=== PATIENT | female | born 1935 | race Caucasian/White ===

== ENCOUNTER 2020-08-19 18:14 | Inpatient (IN) | payer MEDICARE, OTHER ==
[~2020-08-19] VITALS: Ht 160 cm; Wt 61.3 kg
[2020-08-19] MEDS ORDERED: SYNTHROID0.05 MG/TA PO (18:30)
[2020-08-19 20:15] VITALS: BP 140/69; PULSE 84; TEMP 98.3
[2020-08-19 21:14] LABS: BASO % 0.3 % (0.0-2.0); EOS % 0.3 % (0-4.0); GRAN # 12.9 (1.4-6.5); GRAN % 84.5 % (42.2-75.2); HEMATOCRIT 41.4 % (37.0-47.0); HEMOGLOBIN 13.4 g/dl (12.5-16.0); LYMPH # 1.3 (1.2-3.4); LYMPH % 8.3 % (20.0-51.0); MEAN CELL VOLUME 88 fl (80.0-100.0); MEAN CORPUSCULAR HEMOGLOBIN 29 pg (27.0-31.0); MEAN CORPUSCULAR HGB CONC 32 g/dl (33.0-37.0); MEAN PLATELET VOLUME 10.6 fl (7.4-10.4); MONO # 0.9 (0.1-0.6); MONO % 6.1 % (1.7-9.3); PLATELET COUNT 200 K/mm3 (130-400); RED BLOOD COUNT 4.69 M/mm3 (4.10-5.30); REDCELL DISTRIBUTION WIDTH-CV 13.6 % (11.5-14.5)
--- NOTE | 2020-08-19 21:14 | NUR ---
Pt. arrived to the floor via stretcher Pt. transfered to the bed with 3 assist and slide board. Pt. is A&OX3, assessment complete. INT to rt. ac patent. 16 fr. mcqueen placed at this time. Pt. tolerated well. Pt. rates pain at a 3 on pain scale at this time. Pt. denies further needs,
[2020-08-19 21:15] LABS: PROTHROMBIN TIME 11.7 SECONDS (9.7-12.8)
[2020-08-19 21:25] LABS: ALBUMIN 4.5 gm/dL (3.5-5.0); BILIRUBIN,TOTAL 0.6 mg/dL (0.0-1.0); CALCIUM 9.6 mg/dL (8.4-10.2); CREATININE, serum 0.69 (0.52-1.25); POTASSIUM 4.4 mmol/L (3.4-5.0); TOTAL PROTEIN 7.9 gm/dL (6.4-8.2)
[2020-08-19 21:32] LABS: PRE ALBUMIN 23.5 mg/dL (17.6-36.0)
[2020-08-19 23:56] LABS: COLLECTION METHOD CATHETER
[2020-08-20] VITALS (9 sets, daily range): BP systolic 117–128; BP diastolic 48–68; PULSE 72–93; TEMP 97.4–98.6
[2020-08-20 00:06] LABS: AMORPHOUS CRYSTAL Present /uL; MUCOUS Present /lpf; PH 5 (5-8); SQUAMOUS EPITHELIAL None Seen /hpf; URINE APPEARANCE Turbid; URINE BACTERIA Rare /hpf; URINE BILIRUBIN Negative (NEGATIVE); URINE BLOOD 1+ (NEGATIVE); URINE COLOR Amber; URINE GLUCOSE Negative (NEGATIVE); URINE KETONE Trace (NEGATIVE); URINE LEUKOCYTE ESTERASE Negative (NEGATIVE); URINE NITRATE Negative (NEGATIVE); URINE PROTEIN(semi-quant) Negative (NEGATIVE); URINE RBC 0-2 /hpf; URINE UROBILINOGEN Negative (NEGATIVE)
[2020-08-20 04:47] LABS: BASO % 0.1 % (0.0-2.0); EOS % 0.1 % (0-4.0); GRAN # 7.8 (1.4-6.5); GRAN % 77.8 % (42.2-75.2); HEMATOCRIT 35.5 % (37.0-47.0); HEMOGLOBIN 11.7 g/dl (12.5-16.0); LYMPH # 1.2 (1.2-3.4); LYMPH % 12.1 % (20.0-51.0); MEAN CELL VOLUME 87 fl (80.0-100.0); MEAN CORPUSCULAR HEMOGLOBIN 29 pg (27.0-31.0); MEAN CORPUSCULAR HGB CONC 33 g/dl (33.0-37.0); MEAN PLATELET VOLUME 9.5 fl (7.4-10.4); MONO % 9.6 % (1.7-9.3); PLATELET COUNT 152 K/mm3 (130-400); RED BLOOD COUNT 4.07 M/mm3 (4.10-5.30); REDCELL DISTRIBUTION WIDTH-CV 13.7 % (11.5-14.5)
[2020-08-20 04:59] LABS: CREATININE, serum 0.6 (0.52-1.25); MAGNESIUM 2.1 mg/dL (1.6-2.3); POTASSIUM 4.3 mmol/L (3.4-5.0)
--- NOTE | 2020-08-20 08:00 | NUR ---
PATIENT IS A&O. VSS. DENIES PAIN AT REST. NPO FOR SURGERY TODAY. HEAD TO TOE ASSESSMENT COMPLETE. MARCIAL TO DD. IV FLUIDS INFUSING VIA PUMP INTO RIGHT AC IV. NO OTHER NEEDS. CALL LIGHT IN REACH.
--- NOTE | 2020-08-20 09:50 | NUR ---
ALEXEY met with the patient and her son, Jeovanny (ph#[phone]), to discuss discharge plan. The patient lives alone in-between [facility]. Jeovanny lives down the road from her. She reports independence with ADLs and does not have any DME. The patient's PCP is Dr. Jabier Austin and [facility] She reports no difficulties obtaining her meds. The patient does not have a DPOA-HC in EMR, but she states that she does have one completed and that Jeovanny is her DPOA-HC. She states that her and that she has two living children: Jeovanny and her daughter, Carolann. The patient had a right hip fracture. ALEXEY discussed post-acute rehab. Carolann reports that she does not want to go to an inpatient rehab/SNF. She states that she has done outpatient therapy at [facility] in the past and would prefer to return home and do outpatient therapy upon discharge. She states that her daughter will be staying with her for awhile, when she returns home. Jeovanny was supportive of this. SW encouraged the patient to work with therapy while here. The patient is to have surgery today. SW to continue to follow.
--- NOTE | 2020-08-20 11:13 | NUR ---
First visit from the photographic machine operator. No needs right now.
--- NOTE | 2020-08-20 11:15 | NUR ---
PATIENT GOING DOWN TO SURGERY VIA BED. CONSENT ON CHART.
--- NOTE | 2020-08-20 15:40 | NUR ---
PATIENT BACK IN ROOM FROM RIGHT HIP GAMMA NAILING. ORIENTED BUT SLIGHTLY DROWSY. VSS. DENIES PAIN. PATIENT ABLE TO SL MOVE BLE. RIGHT HIP DRESSING IS CD&I WITH FOAM DRESSING AND ICE PACK INPLACE. TEDS & SCD'D TO BLE. POSITIVE PEDAL PULSES TO BLE. HEAD TO TOE ASSESSMENT WNL. NO C/O N/V. IV FLUIDS INFUSING VIA PUMP INTO NEW LEFT WRIST IV SITE. SON AT BEDSIDE. NO OTHER NEEDS. CALL LIGHT IN REACH.
--- NOTE | 2020-08-20 19:00 | NUR ---
Report received, assumed care for move coordinator. Assessment complete. A&Ox3. Denies pain/nausea/shortness of breath. Currently on post op vitals-stable. Godfrey cath with clear yellow urine. Has not tolerated much PO clear liquids-only sips of water. States right lower extremity is still numb and tingly. Dressing to right hip CDI-foam tape/bulky white. IV fluids continue to infuse to left wrist IV without difficulty. Plan of care discussed for this shift to inlcude pain control/calling for needs. Verbalizes understanding/denies questions/concerns. Call light in reach. Will monitor.
[2020-08-21] VITALS (7 sets, daily range): BP systolic 102–136; BP diastolic 45–59; PULSE 84–93; TEMP 97.4–98.7
--- NOTE | 2020-08-21 00:02 | NUR ---
Sitting up in bed watching TV. Denies pain/nausea/shortess of breath. States right lower extremity is still numb but only to knee. Dressing reamains CDI. Denies needs. Call light in reach. Will monitor.
--- NOTE | 2020-08-21 05:42 | NUR ---
Rested well this shift. Denies pain/nausea/shortness of breath. VS remained stable. Has more feeling in right lower extremity. Did attempt to sit on side of bed but stated she just couldnt do it. Dressing to right hip remained CDI. SCDs/TEDs bilat. Enrique with clear yellow urine. IV fluids continued due to minimal PO intake. Call light in reach. Will monitor.
[2020-08-21 07:27] LABS: BASO % 0.2 % (0.0-2.0); GRAN # 10.6 (1.4-6.5); GRAN % 82.1 % (42.2-75.2); HEMOGLOBIN 10.1 g/dl (12.5-16.0); LYMPH # 1.1 (1.2-3.4); LYMPH % 8.4 % (20.0-51.0); MEAN CELL VOLUME 89 fl (80.0-100.0); MEAN CORPUSCULAR HEMOGLOBIN 29 pg (27.0-31.0); MEAN CORPUSCULAR HGB CONC 33 g/dl (33.0-37.0); MEAN PLATELET VOLUME 9.5 fl (7.4-10.4); MONO # 1.1 (0.1-0.6); MONO % 8.7 % (1.7-9.3); PLATELET COUNT 146 K/mm3 (130-400); REDCELL DISTRIBUTION WIDTH-CV 13.7 % (11.5-14.5)
[2020-08-21 07:30] LABS: HEMATOCRIT 31.1 % (37.0-47.0)
[2020-08-21 07:50] LABS: CALCIUM 8.9 mg/dL (8.4-10.2); CREATININE, serum 0.53 (0.52-1.25); POTASSIUM 4.4 mmol/L (3.4-5.0)
--- NOTE | 2020-08-21 09:47 | NUR ---
Patient resting in bed at this time. Patient is alert and oriented, answers questions appropriately. Godfrey remains in place per order draining clear yellow urine. Patient denies pain or nausea, denies further needs at this time, call light within reach.
--- NOTE | 2020-08-21 15:15 | NUR ---
Grain Miller Helper reviewed PT/OT notes for patient which both recommend home. SW followed up with patient who confirmed that she plans to return home at discharge with the support of her daughter, Carolann. SW contacted Carolann to review discharge plan. Carolann plans to stay with patient upon discharge and has no concerns about patient returning home at this time.
--- NOTE | 2020-08-21 17:51 | NUR ---
Patient resting in bedside recliner at this time. Patient remains alert and oriented and continues to deny pain. Call light within reach.
--- NOTE | 2020-08-21 20:00 | NUR ---
Report received, assumed care for reimbursement manager. A&Ox3. Assessment complete. VS stable. Denies nausea/shortness of breath. Rating pain 2/10 on pain scale to right hip-described as intermittent ache-denies need for medication. Fresh ice pack applied. Bulky white dressing with foam tape CDI. Gauze/tegaderm dressing CDI. Bilat SCDs/TEDs. Denies questions/concerns. Call light in reach. Will monitor.
--- NOTE | 2020-08-22 00:10 | NUR ---
Resting in bed eyes closed. No s/s of pain noted. WIll monitor.
[2020-08-22 03:24] VITALS: BP 125/57; PULSE 89; TEMP 98.8
--- NOTE | 2020-08-22 05:30 | NUR ---
Resting in bed watching TV. Denies pain/nausea/shortness of breath. Hopeful to go home today. Received no pain medications this shift stating her pain is very minimal. SCDs/Candy bilat. Fresh ice pack applied to right hip. Call light in reach. Will monitor.
[2020-08-22 05:59] LABS: BASO % 0.2 % (0.0-2.0); EOS # 0.2 (0.0-0.7); EOS % 2.2 % (0-4.0); GRAN # 6.6 (1.4-6.5); GRAN % 69.3 % (42.2-75.2); LYMPH # 1.3 (1.2-3.4); LYMPH % 13.9 % (20.0-51.0); MEAN CELL VOLUME 89 fl (80.0-100.0); MEAN CORPUSCULAR HGB CONC 33 g/dl (33.0-37.0); MEAN PLATELET VOLUME 9.8 fl (7.4-10.4); MONO # 1.3 (0.1-0.6); MONO % 13.9 % (1.7-9.3); PLATELET COUNT 143 K/mm3 (130-400); RED BLOOD COUNT 3.08 M/mm3 (4.10-5.30); REDCELL DISTRIBUTION WIDTH-CV 13.9 % (11.5-14.5)
[2020-08-22 06:00] LABS: HEMATOCRIT 27.3 % (37.0-47.0); HEMOGLOBIN 9.1 g/dl (12.5-16.0); MEAN CORPUSCULAR HEMOGLOBIN 30 pg (27.0-31.0)
[2020-08-22 06:07] LABS: CALCIUM 8.6 mg/dL (8.4-10.2); CREATININE, serum 0.56 (0.52-1.25); POTASSIUM 4.2 mmol/L (3.4-5.0)
[2020-08-22 08:39] VITALS: BP 125/49; PULSE 98; TEMP 98.3
[2020-08-22] MEDS ORDERED: ASPI325T6 PO (10:45)
[2020-08-22] MEDS ORDERED: NORCO 325 MG-51 TAB PO (10:47)
[2020-08-22] MEDS ORDERED: TYLENOL 325MG325 MG PO (10:47)
--- NOTE | 2020-08-22 11:00 | NUR ---
Patient is doing well. She is getting around with minimal assist. No complaints of nausea. Minimal complaints of pain. Godfrey catheter discontinued. Stat-lock removed from leg. Changed dressing to right from occlusive dressing to bandaids as ordered. Patient has a walker at home and stated she does not need any assistance with getting equipment for discharge. No other changes at this time. Call light within reach.
[2020-08-22 11:33] VITALS: BP 128/65; PULSE 95; TEMP 97.8
--- NOTE | 2020-08-22 13:38 | NUR ---
SW met with patient to further discuss discharge planning. Patient stated that she already has a ride to come and get her upon DC. SW informed patient about recommendation of home health services and patient stated that she will not need services due to have enough support from family for assistance needed. SW asked patient could she provide home health services docmentation if needed for the future. Patient accepted information of documenation. Nothing further.
--- NOTE | 2020-08-22 14:00 | NUR ---
Patient is discharging home. Discharge instructions discussed around 1300. Verbalized questions about physical therapy. Explained she can decide where she wants to go. All belongings packed up and sent with patient. Explained to call her PCP Monday for a follow up appointment and that she needs to get labs drawn before her appointment. Explained her prescriptions were sent to the pharmacy. No questions verbalized. INT discontinued. Patient walked out via wheel chair.
== END 2020-08-22 14:00 | disposition home or self-care (01) | DRG 482 ==
LOC: COL.ER 18:14 → JCC 18:59
PROVIDERS: Emergency Medicine; Orthopaedic Surgery; Physician Assistant; Student in an Organized Health Care Education/Training Program; ADMIT Internal Medicine
PROC: 0QS606Z Reposition Right Upper Femur with Intramedullary Internal Fixation Device, Open Approach (ICD-10-PCS; principal; 2020-08-20 12:00)
DX: S72.141A Displaced intertrochanteric fracture of right femur, initial encounter for closed fracture (principal); E03.9 Hypothyroidism, unspecified; Z96.653 Presence of artificial knee joint, bilateral; W18.39XA Other fall on same level, initial encounter; Z66 Do not resuscitate; Z90.49 Acquired absence of other specified parts of digestive tract; Z90.710 Acquired absence of both cervix and uterus; Y93.89 Activity, other specified
CPT/HCPCS: 99222-AI; 99231-AI; 99232-AI; A9284; C1713; C1769; J0690; J1100; J1885; J2250; J2405; J2704; J2795; J3010; J7030; J7120